=== PATIENT | male | born 1960 | race Caucasian/White ===

== ENCOUNTER 2020-11-01 06:01 | Inpatient (IN) ==
[2020-10-26 10:54] LABS: Basophils % 0.4 % (0.0-0.8); Eosinophils # 0.2 10*3/uL (0.0-0.87); Eosinophils % 2.4 % (0.00-10.9); Hematocrit 39.9 VOL% (42.0-52.0); Hemoglobin 13.7 GM/DL (14.0-18.0); Immature Granulocytes % 0.4 %; Immature Granulocytes Absolute 0.03 #; Lymphocytes # 2.3 10*3/uL (1.4-4.0); Mean Corpuscular HGB Conc 34.3 GM/DL (32-36); Mean Corpuscular Volume 90.7 FL (87-102); Mean Platelet Volume 9.9 FL (9.6-12.0); Monocytes % 6.6 % (1.7-12.7); Neutrophils % 56.2 % (38.7-73.9); Platelet Count 190 T/CUMM (130-400); Red Cell Distribution Width 12.8 % (9.3-17.3); White Blood Count 6.8 T/CUMM (4-12)
[2020-10-26 11:05] LABS: Bilirubin,Urine Negative (Negative); Blood, Urine Negative (Negative); Glucose,Urine (UA) Negative (Negative); Ketones,Urine Negative (Negative); Mucus,Urine Occasional /LPF (Occasional); Nitrite,Urine Negative (Negative); Protein,Urine 30 MG/DL; RBC,Urine 1 /HPF (0-4); Urine Appearance Slightly Hazy (Clear); Urine Color Amber (Yellow); Urine Specific Gravity 1.017 (1.001-1.035); Urine Urobilinogen < 2.0 EU/DL (0.2-1.0)
[2020-10-26 11:08] LABS: PT Patient Result 10.4 SECS (9.8-11.9)
[2020-10-26 11:32] LABS: Albumin 3.9 G/DL (3.4-5.0); Bilirubin,Total 0.7 MG/DL (0.2-1.0); Calcium 9.1 MG/DL (8.5-10.1); Osmolality,Calculated 281.5 MOS/KG (273-304); Potassium 3.8 MMOL/L (3.5-5.1); Total Protein 6.5 G/DL (5.0-7.5)
[~2020-11-01 06:01] MED LIST: VANCOMYCIN INJ 1,000 MG in SODIUM CHLORIDE 0.9% 250 ML IV ONE; ceFAZolin 1,000 MG in SYRINGE 1 EACH IV ONE
[2020-11-01] MEDS ORDERED: MIDAZOLAM 2 MG/2 ML VIAL ONE (06:18)
[2020-11-01] MEDS ORDERED: LIDOCAINE 2% 5 ML VIAL ONE (06:19)
[2020-11-01] MEDS ORDERED: fentaNYL 100 MCG/2 ML VIAL ONE ×2 (06:19→08:54)
[2020-11-01] MEDS ORDERED: propofoL 200 MG/20 ML VIAL IV ONE (06:19)
[2020-11-01] MEDS ORDERED: ACETAMINOPHEN 500 MG TABLET ONE (06:25)
[2020-11-01] MEDS ORDERED: FAMOTIDINE 20 MG TABLET PO ONE (06:25)
[2020-11-01] MEDS ORDERED: FAMOTIDINE 20 MG TABLET ONE (06:25)
[2020-11-01] MEDS ORDERED: ACETAMINOPHEN 500 MG TABLET PO ONE (06:25)
[2020-11-01] MEDS ORDERED: GABAPENTIN 400 MG CAPSULE PO ONE (06:25)
[2020-11-01] MEDS ORDERED: GABAPENTIN 400 MG CAPSULE ONE (06:25)
[2020-11-01] MEDS: LACTATED RINGERS 1,000 ML IV SCH ×2 (06:33→08:00)
[2020-11-01] MEDS ORDERED: BUPIVACAINE MPF 0.25% 30 ML VIAL ONE (06:36)
[2020-11-01] MEDS ORDERED: ROCURONIUM 50 MG/5 ML VIAL IV ONE (07:02)
[2020-11-01] MEDS ORDERED: LACTULOSE 20 GM/30 ML UDCUP PO PRN (07:10)
[2020-11-01] MEDS ORDERED: MAGNESIUM HYDROXIDE SUSP 30 ML UDCUP PO PRN (07:10)
[2020-11-01] MEDS ORDERED: MORPHINE 4 MG/1 ML VIAL IV PRN ×2 (07:10→11:17)
[2020-11-01] MEDS ORDERED: diphenhydrAMINE CAP 25 MG CAPSULE PO PRN (07:10)
[2020-11-01] MEDS ORDERED: ONDANSETRON 4 MG/2 ML VIAL IV PRN ×2 (07:10→09:17)
[2020-11-01] MEDS ORDERED: PROMETHAZINE 25 MG/1 ML VIAL IM PRN (07:10)
[2020-11-01] MEDS ORDERED: TRANEXAMIC ACID 1,000 MG/10 ML VIAL ONE (07:38)
[2020-11-01] MEDS ORDERED: SODIUM CHLORIDE 0.9% 100 ML IV ONE (07:38)
[2020-11-01] MEDS ORDERED: PHENYLEPHRINE 1 MG/10 ML SYRINGE IV ONE (07:51)
[2020-11-01] MEDS ORDERED: ONDANSETRON 4 MG/2 ML VIAL ONE (08:06)
[2020-11-01] MEDS ORDERED: LACTATED RINGERS 1,000 ML IV ONE (08:07)
[2020-11-01] MEDS ORDERED: ePHEDrine 50 MG/ML VIAL ONE (08:09)
[2020-11-01] MEDS ORDERED: GLYCOPYRROLATE 0.4 MG/2 ML VIAL ONE (08:12)
[2020-11-01] MEDS ORDERED: NEOSTIGMINE 10 MG/10 ML VIAL ONE (08:12)
[2020-11-01] MEDS ORDERED: SEVOFLURANE 1 UNIT/15 MINUTE INH ONE (08:28)
[2020-11-01] MEDS ORDERED: NON-FORMULARY MEDICATION (Elderberry Fruit And Flower 460-115 mg Capsule) PO SCH (09:00)
[2020-11-01 09:08] LABS: Bilirubin,Urine Negative (Negative); Blood, Urine Negative (Negative); Glucose,Urine (UA) Negative (Negative); Ketones,Urine Negative (Negative); Mucus,Urine Occasional /LPF (Occasional); Nitrite,Urine Negative (Negative); Protein,Urine 30 MG/DL; RBC,Urine 2 /HPF (0-4); Urine Appearance CLEAR (Clear); Urine Color Yellow (Yellow); Urine Specific Gravity 1.024 (1.001-1.035); Urine Urobilinogen < 2.0 EU/DL (0.2-1.0)
[2020-11-01] MEDS ORDERED: MEPERIDINE 25 MG/1 ML VIAL IV PRN (09:17)
[2020-11-01] MEDS: HYDROmorphone 2 MG/1 ML VIAL IV PRN ×4 (09:20→09:35)
[2020-11-01] MEDS ORDERED: HYDROmorphone 2 MG/1 ML VIAL ONE (09:20)
[2020-11-01] MEDS: CHOLECALCIFEROL 5,000 UNIT TABLET PO SCH (12:19)
[2020-11-01] MEDS: LOSARTAN/HCTZ 50-12.5 MG TABLET PO SCH (12:30)
[2020-11-01] MEDS: ceFAZolin 2,000 MG in PREMIX 1 EACH IV SCH ×2 (15:00→21:03)
[2020-11-01] MEDS: POTASSIUM CHLORIDE 20 MEQ TABLET PO SCH (17:31)
[2020-11-01] MEDS: FONDAPARINUX 2.5 MG/0.5 ML SYRINGE SUBCUT SCH (17:33)
[2020-11-01] MEDS: DOCUSATE SODIUM 100 MG CAPSULE PO SCH (21:04)
[2020-11-01] MEDS: TEMAZEPAM 7.5 MG CAPSULE PO PRN (21:06)
[2020-11-02 06:00] LABS: Basophils % 0.3 % (0.0-0.8); Eosinophils # 0.2 10*3/uL (0.0-0.87); Eosinophils % 1.9 % (0.00-10.9); Hematocrit 34.2 VOL% (42.0-52.0); Hemoglobin 11.5 GM/DL (14.0-18.0); Immature Granulocytes % 0.3 %; Immature Granulocytes Absolute 0.03 #; Lymphocytes # 2.4 10*3/uL (1.4-4.0); Lymphocytes % 26.8 % (21.2-54.2); Mean Corpuscular HGB Conc 33.6 GM/DL (32-36); Mean Corpuscular Volume 92.2 FL (87-102); Mean Platelet Volume 9.7 FL (9.6-12.0); Monocytes % 8.2 % (1.7-12.7); Neutrophils % 62.5 % (38.7-73.9); Platelet Count 155 T/CUMM (130-400); Red Blood Count 3.71 MC/CUMM (3.8-5.5)
[2020-11-02 06:21] LABS: Calcium 8.5 MG/DL (8.5-10.1); Osmolality,Calculated 274.7 MOS/KG (273-304); Potassium 3.6 MMOL/L (3.5-5.1)
[2020-11-02] MEDS: POTASSIUM CHLORIDE 20 MEQ TABLET PO SCH ×3 (08:31→17:31)
[2020-11-02] MEDS: LOSARTAN/HCTZ 50-12.5 MG TABLET PO SCH (08:32)
[2020-11-02] MEDS: MULTIVITAMIN (CENTRUM) TABLET PO SCH (08:32)
[2020-11-02] MEDS: CHOLECALCIFEROL 5,000 UNIT TABLET PO SCH (08:32)
[2020-11-02] MEDS: DOCUSATE SODIUM 100 MG CAPSULE PO SCH ×2 (08:32→20:36)
[2020-11-02] MEDS: MULTIVITAMIN (BEROCCA) TABLET PO SCH (08:32)
[2020-11-02] MEDS: ASCORBIC ACID 500 MG TABLET PO SCH (08:32)
[2020-11-02] MEDS: TAMSULOSIN 0.4 MG CAPSULE PO SCH (08:32)
[2020-11-02] MEDS: GLUCOSAMINE 500 MG TABLET PO SCH (08:32)
[2020-11-02] MEDS ORDERED: KETOROLAC 30 MG/1 ML VIAL IV SCH (12:30)
[2020-11-02] MEDS: FONDAPARINUX 2.5 MG/0.5 ML SYRINGE SUBCUT SCH (17:32)
[2020-11-03] MEDS: TEMAZEPAM 7.5 MG CAPSULE PO PRN (00:34)
[2020-11-03] MEDS ORDERED: KETOROLAC 30 MG/1 ML VIAL IV ONE (08:30)
[2020-11-03] MEDS: MULTIVITAMIN (BEROCCA) TABLET PO SCH (09:49)
[2020-11-03] MEDS: DOCUSATE SODIUM 100 MG CAPSULE PO SCH (09:49)
[2020-11-03] MEDS: MULTIVITAMIN (CENTRUM) TABLET PO SCH (09:49)
[2020-11-03] MEDS: LOSARTAN/HCTZ 50-12.5 MG TABLET PO SCH (09:49)
[2020-11-03] MEDS: ASCORBIC ACID 500 MG TABLET PO SCH (09:49)
[2020-11-03] MEDS: POTASSIUM CHLORIDE 20 MEQ TABLET PO SCH ×2 (09:49→12:10)
[2020-11-03] MEDS: TAMSULOSIN 0.4 MG CAPSULE PO SCH (09:49)
[2020-11-03] MEDS: CHOLECALCIFEROL 5,000 UNIT TABLET PO SCH (09:50)
[2020-11-03] MEDS: GLUCOSAMINE 500 MG TABLET PO SCH (09:50)
[2020-11-03 11:10] VITALS: BP 174/72
== END 2020-11-03 15:20 | disposition home health service (06) | DRG 470 ==
LOC: N.OR 06:01 → N.SDSINP 06:01 → EDSTATUS 07:30 → N.3E 10:06
PROVIDERS: ADMIT Orthopaedic Surgery; ATTEND Orthopaedic Surgery